=== PATIENT | female | born 1995 | race Caucasian/White ===

== ENCOUNTER 2017-07-24 16:16 | Emergency (ER) | payer MEDICAID, OTHER ==
[2017-07-24 16:16] VITALS: BMI 30.6
[2017-07-24 16:27] VITALS: BP 141/79; PULSE 95; RESP 20; TEMP 98.6; O2SAT 99
[2017-07-24] MEDS ORDERED: Lactated Ringer's 1,000 ML IV STA (16:49)
--- NOTE | 2017-07-24 17:07 | ED PDOC ---
HPI: Female Pain Time Seen by Provider: 07/24/17 16:30 Chief Complaint (Nursing): Female Genitourinary Chief Complaint (Provider): Pelvic pain and vaginal discharge History Per: Patient History/Exam Limitations: no limitations Onset/Duration Of Symptoms: Days (x 1) Current Symptoms Are (Timing): Intermittent Episodes Additional Complaint(s): Reema is a 22 y/o female who presents to the ED complaining of pelvic pain and vaginal discharge, onset this morning. Reports small amount of dark red spotting this morning with intermittent "crampy" pelvic pain. States she is but does not know how far along. LMP was 04/12 but patient became while control Norplant was in place. Implant has since been removed by flight manager. Patient has not had ultrasound yet, and began care in June. Attends the [facility] in [place], and is taking vitamins. Patient is . Her first baby (now 2 years old) was born full term via vaginal delivery. PMD: [facility] Past Medical History Reviewed: Historical Data, Nursing Documentation, Vital Signs Vital Signs: Last Vital Signs Temp 98.6 F 07/24/17 16:24 Pulse 95 H 07/24/17 16:24 Resp 20 07/24/17 16:24 BP 141/79 07/24/17 16:24 Pulse Ox 99 07/24/17 16:24 - Medical History PMH: No Chronic Diseases - Surgical History Surgical History: No Surg Hx - Family History Family History: States: Unknown Family Hx - Social History Current smoker - smoking cessation education provided: No Alcohol: None Drugs: Denies - Home Medications Home Medications: Ambulatory Orders Medication Instructions Recorded Naproxen [Naprosyn] 500 mg PO Q12H #20 tab 10/23/16 - Allergies Allergies/Adverse Reactions: Allergies Allergy/AdvReac Type Severity Reaction Status Date / Time No Known Allergies Allergy Verified 04/16/15 23:55 Review of Systems ROS Statement: Except As Marked, All Systems Reviewed And Found Negative (as per HPI) Gastrointestinal: Positive for: Nausea. Negative for: Vomiting Genitourinary Female: Positive for: Frequency, Vaginal Discharge, Vaginal Bleeding, Pelvic Pain. Negative for: Dysuria, Hematuria Physical Exam - Reviewed Nursing Documentation Reviewed: Yes Vital Signs Reviewed: Yes - Physical Exam Appears: Positive for: Well, No Acute Distress Head Exam: Positive for: ATRAUMATIC, NORMOCEPHALIC Skin: Positive for: Warm, Dry Neck: Positive for: Painless ROM, Supple Cardiovascular/Chest: Positive for: Regular Rate, Rhythm. Negative for: Murmur Respiratory: Positive for: Normal Breath Sounds. Negative for: Respiratory Distress Gastrointestinal/Abdominal: Positive for: Soft, Tenderness (suprapubic). Negative for: Mass, Distended, Guarding, Rebound Pelvic Exam: Positive for: External Exam Normal, Speculum Exam Normal, No Cerv. Motion Tender, Discharge (white physiologic), Tender Adnexa, Tender Uterus. Negative for: Blood Extremity: Negative for: Pedal Edema, Deformity Lymphatic: Negative for: Adenopathy Neurologic/Psych: Positive for: Alert. Negative for: Motor/Sensory Deficits - Laboratory Results Result Diagrams: 07/24/17 17:00 - ECG O2 Sat by Pulse Oximetry: 99 (RA) Pulse Ox Interpretation: Normal Medical Decision Making Medical Decision Making: Initial Impression: with vaginal bleeding and pain Differentials include but are not limited to: threatened miscarriage, demise, ectopic , and dehydration. Time: 16:49 Initial Plan: --Labs ordered, including urine dip and preg --Ordered US OB Transvaginal/ --Patient started on IV Lactated Ringer's 1000 ml at 1000 mls/hr --Reevaluation and disposition Time: 17:00 --Labs reviewed, revealing Beta-HCG level of 94,254 mIU/mL --Blood type A postive EXAM: US First Trimester, Transabdominal EXAM DATE/TIME: 07/24/2017 CLINICAL HISTORY: Pain; complicated by abdominal or pelvic pain; Lower; First trimester ; Gestational age or lmp: See attached notes; ; Additional info: Abd pain vag bleed preg unk dates TECHNIQUE: Real-time transabdominal obstetrical ultrasound of the maternal pelvis and a first trimester with image documentation. COMPARISON: No relevant comparison exam is available at the time of interpretation. FINDINGS: Gestation: Single live intrauterine gestation with a sonographic gestational age of 13 weeks 1 day. The heart rate is 154-162 beats per minute. Placenta/amniotic fluid: The placenta is anterior without evidence of abruption. Borderline low-lying placenta with the inferior placental tip approximately 2 cm from the internal cervical os. Uterus/cervix: The cervix is closed and measures 3.5 cm in length. Ovaries: The left ovary is normal in size and appearance and demonstrates vascular flow on Doppler imaging. The right ovary is not identified. No adnexal mass is visualized. Free fluid: No pelvic free fluid is visualized. IMPRESSION: Single live IUP with a sonographic gestational age of 13 weeks 1 day. No evident acute abnormality. Thank you for allowing us to participate in the care of your patient. Dictated and Authenticated by: Sharonda Garza MD 07/24/2017 6:30 PM Eastern Time ([place] & [place]) Scribe Attestation: Documented by Yane Garcia, acting as a scribe for Bharti Schwarz MD Provider Scribe Attestation: All medical record entries made by the Scribe were at my direction and personally dictated by me. I have reviewed the chart and agree that the record accurately reflects my personal performance of the history, physical exam, medical decision making, and the department course for this patient. I have also personally directed, reviewed, and agree with the discharge instructions and disposition. Disposition - Clinical Impression Clinical Impression: Abdominal pain in Counseled Patient/Family Regarding: Studies Performed, Diagnosis, Need For Followup - Disposition Referrals: [facility] [Provider Group] - 07/26/17 (FOLLOW UP WITH PLACIDO ABBOTT ON TUESDAY FOR [facility]EE[facility] [place] [place] [Outside] [facility] [Outside] Disposition: Routine/Home Disposition Time: 18:32 Condition: GOOD Additional Instructions: TAKE TYLENOL FOR PAIN RETURN TO ER IF YOU FEEL WORSE. NACHO TYLENOL PARA DOLOR REGRESA SI [facility] Instructions: Abdominal Pain in (ED) Forms: [employer] (English) Print Language: SLOVENIAN
[2017-07-24 17:17] LABS: BASO % 0.4 % (0.0-2.0); EOS # 0.1 K/uL (0.0-0.7); HEMATOCRIT 38.3 % (34.0-47.0); LYMPH # 2.1 K/uL (1.0-4.3); LYMPH % 19.1 % (20.0-40.0); MEAN CELL VOLUME 84.7 fl (81.0-99.0); MEAN CORPUSCULAR HEMOGLOBIN 28.7 pg (27.0-31.0); MEAN CORPUSCULAR HGB CONC 33.9 g/dL (33.0-37.0); MEAN PLATELET VOLUME 8.2 fl (7.2-11.7); MONO # 0.6 K/uL (0.0-0.8); MONO % 5.4 % (0.0-10.0); NEUT # 8.2 K/uL (1.8-7.0); NEUT % 74.1 % (50.0-75.0)
--- NOTE | 2017-07-24 19:29 | US ---
EXAM: US Uterus, Limited EXAM DATE/TIME: 07/24/2017 4:50 PM CLINICAL HISTORY: 22 years old, female; Pain; complicated by abdominal or pelvic pain; Lower; First trimester; Gestational age or lmp: See attached notes; ; Additional info: Abdominal pain, vaginal bleeding, , unknown dates TECHNIQUE: Real-time ultrasound of the maternal uterus (limited) with image documentation. COMPARISON: No relevant prior studies available. FINDINGS: Uterus measures 14.3 x 7.8 x 10.6 cm. No focal masses are seen. Single fetus identified. Calculated sonographic gestational age is 13 weeks, 1 day. heart motion visualized, at 162 beats/min. Note that the anatomy and amniotic fluid volume cannot be evaluated at this early gestational age. Anterior location of the placenta. The inferior tip of the placenta is located 2 cm away from the internal cervical os, compatible with a low-lying placenta. No evidence of complete placenta previa. Cervical length is 3.4 cm (normal greater than 3 cm), measured transabdominally. Right ovary could not be visualized. Left ovary is seen, and is within normal limits in appearance, measuring 3.6 x 2.6 x 3.6 cm. Flow seen in the left ovary on color and Doppler imaging, with no evidence of torsion. IMPRESSION: 13 week, 1 day intrauterine with heart motion. Findings compatible with a low-lying placenta. Followup is recommended. See above for remaining findings.
== END 2017-07-24 18:50 | disposition home or self-care (01) ==
LOC: H.ER 16:16
DX: O26.891 Other specified pregnancy related conditions, first trimester (principal)
CPT/HCPCS: 76815; 81025; 84702; 85025; 86850; 86900; 87491; 87591; 96360; 99283; J7120